=== PATIENT | male | born 1965 | race Caucasian/White ===

== ENCOUNTER 2018-09-24 09:01 | Day surgery (SDC) | payer OTHER ==
[2018-09-23 13:49] VITALS: BMI 29.5
[2018-09-24 10:48] VITALS: TEMP 97.9
[2018-09-24 12:06] VITALS: BP 147/92; PULSE 75
--- NOTE | 2018-09-25 11:28 | PATH ---
Surgical Pathology Report Patient Name: SOL PICHARDO [facility]. Rec. #: [id number] /Age/Gender: 1965 (Age: 53) / M Account: [id number] Location: U-ENDOSCOPY Taken: 09/24/2018 Received: 09/24/2018 Reported: 09/25/2018 Physicians: Guillermo Maradiaga M.D. Specimen(s) Received A: BX ILEUM B: BX CECUM C: BX RECTUM Clinical History Colon screening, rule out IBS, rectal bleeding Postoperative diagnosis: Diverticulosis Final Diagnosis A. ILEAL, BIOPSY: ILEAL MUCOSA WITH NO DIAGNOSTIC ABNORMALITIES. NO HISTOLOGIC EVIDENCE OF INTRAEPITHELIAL LYMPHOCYTOSIS. B. CECUM, BIOPSY: COLONIC MUCOSA WITH REACTIVE LYMPHOID AGGREGATE IN THE LAMINA PROPRIA. C. RECTUM, BIOPSY: COLONIC MUCOSA WITH REACTIVE LYMPHOID FOLLICLE AND FOCAL RECENT HEMORRHAGE. NO HISTOLOGIC EVIDENCE OF PROCTITIS. Electronically Signed Isis Jones M.D. Gross Description A. Received in formalin, labeled "ileum" are 2 hatch, irregular portions of soft tissue measuring 0.4 and 0.5 cm. in greatest dimension. The specimens are submitted in toto in one cassette. B. Received in formalin, labeled "rectum" is a hatch, irregular portion of soft tissue measuring 0.3 cm. in greatest dimension. The specimen is submitted in toto in one cassette. C. Received in formalin, labeled "cecum" are 2 hatch, irregular portions of soft tissue averaging 0.3 cm. in greatest dimension. The specimens are submitted in toto in one cassette. 09/24/2018 saudi09/24/2018
== END 2018-09-24 12:06 | disposition home or self-care (01) ==
LOC: JASU-ENDO 09:01
PROVIDERS: ATTEND Internal Medicine Gastroenterology
PROC: 0DBE8ZX Excision of Large Intestine, Via Natural or Artificial Opening Endoscopic, Diagnostic (ICD-10-PCS; principal; 2018-09-24 09:45)
DX: Z12.11 Encounter for screening for malignant neoplasm of colon (principal); K57.30 Diverticulosis of large intestine without perforation or abscess without bleeding; K64.8 Other hemorrhoids; K92.1 Melena
CPT/HCPCS: 87045; 87046; 88305-TC

== ENCOUNTER 2018-11-21 09:15 | Inpatient (IN) | payer OTHER ==
--- NOTE | 2018-11-21 09:32 | PDOC ---
History of Present Illness - General Chief Complaint: Rectal Bleed Stated Complaint: RECTAL BLEEDING Time Seen by Provider: 11/21/18 09:31 History Source: Patient, Old Records Exam Limitations: No Limitations - History of Present Illness Initial Comments: HPI: 53 y/o male presenting to [facility] ER complaining of bright red blood per rectum with bowel movement. Endorses four episodes since yesterday afternoon. Denies pain or straining with BM. Denies diarrhea or melena. Denies, syncope, lightheadedness, SOB, or chest pain. Denies fevers, chills, weight loss, night sweats, or change in stool caliber. Was evaluated at [facility] last night after first episode and referred to GI for outpatient follow up. H/H 17.8/ at [facility] per provided discharge paperwork. Pt is a pt of record with Dr. Maradiaga. Has an episode of blood mixed into stool in August 2018. Colonoscopy was performed 09/04/2018 and revealed diverticulosis. Pt does not take anticoagulants, but reports taking two ASA yesterday for headache. Medical Hx: - Diverticulosis - HTN - IBS Past History - Past Medical History Allergies/Adverse Reactions: Allergies Allergy/AdvReac Type Severity Reaction Status Date / Time No Known Allergies Allergy Verified 09/23/18 14:41 Home Medications: Ambulatory Orders NK [No Known Home Medication] 09/23/18 COPD: No GI Disorders: Yes (IBS) HTN: Yes - Surgical History Orthopedic Surgery: Yes (RIGHT ROTATOR CUFF) - Suicide/Smoking/Psychosocial Hx Smoking History: Never smoked Hx Alcohol Use: No Drug/Substance Use Hx: No Substance Use Type: None Hx Substance Use Treatment: No Review of Systems - Review of Systems Able to Perform ROS?: Yes Comments:: In addition to that documented in the HPI above, the additional ROS was obtained : Constitutional: Denies fevers or chills Eyes: Denies vision changes ENMT: Denies sore throat CV: Denies chest pain Resp: Denies SOB GI: Denies vomiting or diarrhea : Denies painful urination MSK: Denies recent trauma Skin: Denies new rashes Neuro: Denies new numbness or tingling or weakness Endocrine: Denies polyuria Heme: Denies bleeding or bruising *Physical Exam - Physical Exam Comments: Constitutional: Well-developed, well-nourished male in no acute distress or obvious discomfort. Found semi-fowlers on hospital bed. Alert and oriented x4. Answered all questions appropriately and completely. Speech was non-labored, non -pressured. Head: Normocephalic. No obvious external signs of trauma. Eyes: Sclerae white. EARS: Hearing grossly intact. NOSE: No nasal discharge. Neck: Supple, trachea is midline. Cardiovascular: Tachycardic rate and regular rhythm. No murmur, rubs, clicks, or gallops. Peripheral pulses: Radial pulses full. Respiratory: Breathing unlabored. Equal chest rise and fall. Clear to auscultation bilaterally. No stridor, no wheezing, no rhonchi. Gastrointestinal: abdomen is soft, non-tender, non-distended. Neuro: Alert and oriented. Moving all four extremities spontaneously. Skin: Warm, dry, and intact. Psych: Affect: appropriate. Mood: normal. MALE RECTAL: Good sphincter tone with no anal, perineal or rectal lesions. Bright red blood on glove. RN chaperoned exam. ED Treatment Course - LABORATORY CBC & Chemistry Diagram: 11/21/18 09:55 11/21/18 09:55 Medical Decision Making - Medical Decision Making *Reviewed vital signs, nursing notes, and prior visit documentation (if available). 53 y/o male presenting with BRBPR with bowel movements x2 days. H/o of diverticulosis. Tachycardic and hypertensive at triage. Reports a long history of similar vitals with anxiety. Denies syncope, chest pain, or SOB. Physical exam as described above. Suspect LGIB likely secondary to internal hemorrhoids versus AVM versus diverticular. Will obtain CBC, CMP, Coags, and T/S. Ordered LR IVFB. CBC revealed H/H within normal limits. Very slight downtrend from values reported from [facility]. Coags within normal limits. 10:[address] Maradiaga. Awaiting call back. Pt approached MD work area and reported another grossly bloody bowel movement. 11:[address] Maradiaga. Verbally appraised of the pts HPI, ED course, and current plan of management. Requests CTA of abdomen and pelvis. Will evaluate. ED attending admitted pt to hospitalist service for GI bleed concern for possible diverticular bleed. 12:05 RN called MD to bedside. Witness a possible syncopal episode. States pt became pale, diaphoretic, and appeared to lose tone. Lasted a few seconds before pt returned to baseline. Re-examined pt. Found to be diaphoretic but A/Ox4. Stated he felt nauseous before the episode. Vitals repeated. Remains hypertensive but trended downward from initial. Tachycardia has resolved. Suspect likely vasovagal episode, given pts reported history of similar. Ordered repeat T/S and repeat H/H. Will transport to CT on monitor. *DC/Admit/Observation/Transfer Diagnosis at time of Disposition: BRBPR (bright red blood per rectum) GI bleed Qualifiers: GI bleed type/associated pathology: unspecified gastrointestinal hemorrhage type Qualified Code(s): K92.2 - Gastrointestinal hemorrhage, unspecified Diverticulosis Qualifiers: Diverticulosis site: unspecified location - Referrals - Patient Instructions - Post Discharge Activity
--- NOTE | 2018-11-21 10:00 | PDOC ---
Attending Attestation - Resident Resident Name: Omega Murphy - ED Attending Attestation I have performed the following: I have examined & evaluated the patient, The case was reviewed & discussed with the resident, I agree w/resident's findings & plan, Exceptions are as noted - HPI HPI: 11/21/18 09:58 53yo M hx diverticulosis, IBS, HTN (not on meds) presents to the ED with painless BRBPR x 4 episodes since yesterday. Seen at [facility], dx iwth internal hemorrhoids Filling blood with toilet, some clots Feels mouth is dry as well. Follows with Dr. Maradiaga Colonoscopy in 08/28 for BRBPR was normal reportedly No lightheadedness, dizziness, weight loss, abd pain No blood thinners Denies CP, SOB, weakness/numbness. - Physicial Exam PE: 11/21/18 09:59 agree with resident exam - Medical Decision Making 11/21/18 10:20 53yo M hx diverticulosis presents to the ED with 4 episodes of painless rectal bleeding. Vitals with tachycardia and hypertension. Exam with dry MM, no abd ttp , rectal vault with BRB. Likely diverticulosis. Plan for labs, 1L IVF, GI c/s, admission. 11/21/18 11:59 Case discussed with VETERINARY SURGEON Denise. Pt accepted for admission. Dr. Arias aware, will see pt, recommends CTA Case discussed in detail with admitting physician including history, physical exam and ancillary studies. Admitting physician has assumed care for the patient, will follow all pending diagnostics and will complete the evaluation and treatment. *DC/Admit/Observation/Transfer Diagnosis at time of Disposition: BRBPR (bright red blood per rectum) GI bleed Qualifiers: GI bleed type/associated pathology: unspecified gastrointestinal hemorrhage type Qualified Code(s): K92.2 - Gastrointestinal hemorrhage, unspecified Diverticulosis Qualifiers: Diverticulosis site: unspecified location - Discharge Dispostion Condition at time of disposition: Stable Decision to Admit order: Yes - Referrals - Patient Instructions - Post Discharge Activity - Attestations Physician Attestion: 11/21/18 12:01 I, Dr. Aniyah Sheridan MD, attest that this document has been prepared under my direction and personally reviewed by me in its entirety. I further attest, that it accurately reflects all work, treatment, procedures and medical decision -making performed by me. Heart Score/ECG Review #1 11/21/18 12:22 Twelve-lead EKG was performed and reviewed by me. Sinus tachycardia, rate 103. Normal axis. No ST elevations. Isolated T-wave inversion in lead 3.
[2018-11-21 10:02] LABS: EOS % 1.3 % (0-4.5); HEMATOCRIT 50.3 % (35.4-49); HEMOGLOBIN 16.9 GM/dL (11.7-16.9); LYMPH % 19.2 % (8-40); MCH 28.2 pg (25.7-33.7); MCHC 33.6 g/dl (32.0-35.9); MEAN CELL VOLUME 83.9 fl (80-96); MEAN PLT VOLUME 7.3 fl (7.5-11.1); MONO % 7.4 % (3.8-10.2); NEUT % 71.1 % (42.8-82.8); PLATELET COUNT 323 K/MM3 (134-434); RBC 5.99 M/mm3 (4.00-5.60); RDW 14.3 % (11.9-15.9); WHITE BLOOD COUNT 12.3 K/mm3 (4.0-10.0)
[2018-11-21] MEDS ORDERED: LACTATED RINGERS SOLUTION 1000 ML INFUS.BAG IV ONE (10:09)
[2018-11-21 10:13] LABS: INR 1.08 (0.83-1.09); PROTHROMBIN TIME (PATIENT) 12.8 SEC (9.7-13.0)
[2018-11-21 10:16] LABS: ACTIVATED PTT 33.1 SECONDS (25.2-36.5)
[2018-11-21] MEDS ORDERED: SODIUM CHLORIDE 1,000 ML IV STA (10:17)
[2018-11-21 10:40] LABS: ALBUMIN 4.5 g/dl (3.4-5.0); ALK PHOS 67 U/L (45-117); ANION GAP 7 MMOL/L (8-16); BILIRUBIN,TOTAL 0.9 mg/dL (0.2-1); BLOOD UREA NITROGEN 15 mg/dL (7-18); CALCIUM 9.3 mg/dL (8.5-10.1); CHLORIDE 104 mmol/L (98-107); CO2 30 mmol/L (21-32); CREATININE 0.9 mg/dL (0.55-1.3); GLUCOSE,RANDOM 115 mg/dL (74-106); POTASSIUM 3.6 mmol/L (3.5-5.1); SGOT/AST 25 U/L (15-37); SGPT/ALT 45 U/L (13-61); SODIUM 141 mmol/L (136-145)
--- NOTE | 2018-11-21 11:40 | EKG ---
Test Reason : Blood Pressure : / mmHG Vent. Rate : 103 BPM Atrial Rate : 103 BPM P-R Int : 154 ms QRS Dur : 090 ms QT Int : 362 ms P-R-T Axes : 041 057 016 degrees QTc Int : 474 ms SINUS TACHYCARDIA OTHERWISE NORMAL ECG NO PREVIOUS ECGS AVAILABLE Confirmed by ANDRZEJ CARLOS, IVONNE ([id number]) on 11/21/2018 11:40:17 AM Referred By: Confirmed By:IVONNE DONNELLY MD
[2018-11-21 12:28] LABS: HEMATOCRIT 43.1 % (35.4-49); HEMOGLOBIN 15.5 GM/dL (11.7-16.9); MCH 29.7 pg (25.7-33.7); MCHC 35.8 g/dl (32.0-35.9); MEAN PLT VOLUME 7.7 fl (7.5-11.1); PLATELET COUNT 344 K/MM3 (134-434); RDW 14.2 % (11.9-15.9); WHITE BLOOD COUNT 16.3 K/mm3 (4.0-10.0)
--- NOTE | 2018-11-21 13:49 | HP ---
CHIEF COMPLAINT: bright blood per rectum PCP: none HISTORY OF PRESENT ILLNESS: Patient is a 53 year old male with a past medical history of anxiety, hypertension, diverticulosis and IBS. He presents to the ED today with c/o of bright red blood per rectum with a bowel movement. Patient endorses four episodes of rectal bleeding since yesterday. He denies any straining. He takes ASA 81mg as needed for headache pain and has taken a few times this past week. When patient had his first episode of rectal bleeding, he went to [facility] and was observed. He was sent home with outpatient follow up. In the ED patient had an episode of lightheadedness with a syncopal episode. He complaint of not feeling well and was nauseated and was noted to be pale and diaphoretic. When he sat up to use the basin, he had a witnessed syncopal episode. Patient returned to baseline a few seconds letter. He will be observed in cardiac monitoring for now. He was not hypoglycemic. Patient had a colonoscopy on 09/04/2018 which revealed diverticulosis. ER course was notable for: (1) syncopal episode (2) stable hmg/hct (3) abd cta: no definite bleeding identified, colonic diverticulosis seen, colonic fecal retention, 2mm non obstructing right renal calculus. Recent Travel: PAST MEDICAL HISTORY: nxiety, hypertension, diverticulosis and IBS. PAST SURGICAL HISTORY: colonoscopy 08/2018 Social History: Smoking:denies Alcohol:denies Drugs: denies Family History: Allergies No Known Allergies Allergy (Verified 09/23/18 14:41) HOME MEDICATIONS: Home Medications Medication Instructions Recorded NK [No Known Home Medication] 09/23/18 PHYSICAL EXAMINATION Vital Signs - 24 hr 11/21/18 11/21/18 11/21/18 09:31 10:00 11:50 Temperature 98.4 F 97.8 F Pulse Rate 125 H Pulse Rate [ 112 H 102 H Apical] Respiratory 20 18 18 Rate Blood Pressure 171/112 H Blood Pressure 172/111 H 159/109 H [Right Arm] O2 Sat by Pulse 97 100 96 Oximetry (%) 11/21/18 11/21/18 12:11 12:54 Temperature Pulse Rate Pulse Rate [ 89 95 H Apical] Respiratory 18 17 Rate Blood Pressure Blood Pressure 159/98 150/94 [Right Arm] O2 Sat by Pulse 100 96 Oximetry (%) GENERAL: Awake, alert, and fully oriented, in no acute distress. HEAD: Normal with no signs of trauma. EYES: Pupils equal, round and reactive to light, extraocular movements intact, sclera anicteric, conjunctiva clear. No lid lag. EARS, NOSE, THROAT: Ears normal, nares patent, oropharynx clear without exudates. Moist mucous membranes. NECK: Normal range of motion, supple without lymphadenopathy, JVD, or masses. LUNGS: Breath sounds equal, clear to auscultation bilaterally. No wheezes, and no crackles. No accessory muscle use. HEART: Regular rate and rhythm, normal S1 and S2 without murmur, rub or gallop. ABDOMEN: Soft, nontender, not distended, normoactive bowel sounds, no guarding, no rebound, no masses. No hepatomegaly or splenomegaly. MUSCULOSKELETAL: Normal range of motion at all joints. No bony deformities or tenderness. No CVA tenderness. UPPER EXTREMITIES: 2+ pulses, warm, well-perfused. No cyanosis. No clubbing. No peripheral edema. LOWER EXTREMITIES: 2+ pulses, warm, well-perfused. No calf tenderness. No peripheral edema. NEUROLOGICAL: Cranial nerves II-XII intact. Normal speech. Normal gait. PSYCHIATRIC: Cooperative. Good eye contact. Appropriate mood and affect. SKIN: Warm, dry, normal turgor, no rashes or lesions noted, normal capillary refill. Laboratory Results - last 24 hr 11/21/18 11/21/18 11/21/18 09:55 09:55 09:55 WBC 12.3 H RBC 5.99 H Hgb 16.9 Hct 50.3 H MCV 83.9 MCH 28.2 MCHC 33.6 RDW 14.3 Plt Count 323 MPV 7.3 L Absolute Neuts (auto) 8.8 H Neutrophils % 71.1 Lymphocytes % 19.2 Monocytes % 7.4 Eosinophils % 1.3 Basophils % 1.0 Nucleated RBC % 0 PT with INR 12.80 INR 1.08 PTT (Actin FS) 33.1 Sodium 141 Potassium 3.6 Chloride 104 Carbon Dioxide 30 Anion Gap 7 L BUN 15 Creatinine 0.9 Creat Clearance w eGFR > 60 POC Glucometer Random Glucose 115 H Calcium 9.3 Total Bilirubin 0.9 AST 25 ALT 45 Alkaline Phosphatase 67 Total Protein 8.0 Albumin 4.5 Blood Type Antibody Screen 11/21/18 11/21/18 11/21/18 09:55 11:58 11:58 WBC 16.3 H RBC 5.20 Hgb 15.5 Hct 43.1 MCV 83.0 MCH 29.7 MCHC 35.8 RDW 14.2 Plt Count 344 MPV 7.7 Absolute Neuts (auto) Neutrophils % Lymphocytes % Monocytes % Eosinophils % Basophils % Nucleated RBC % PT with INR INR PTT (Actin FS) Sodium Potassium Chloride Carbon Dioxide Anion Gap BUN Creatinine Creat Clearance w eGFR POC Glucometer Random Glucose Calcium Total Bilirubin AST ALT Alkaline Phosphatase Total Protein Albumin Blood Type O POSITIVE O POSITIVE Antibody Screen Negative 11/21/18 12:02 WBC RBC Hgb Hct MCV MCH MCHC RDW Plt Count MPV Absolute Neuts (auto) Neutrophils % Lymphocytes % Monocytes % Eosinophils % Basophils % Nucleated RBC % PT with INR INR PTT (Actin FS) Sodium Potassium Chloride Carbon Dioxide Anion Gap BUN Creatinine Creat Clearance w eGFR POC Glucometer [id number] Random Glucose Calcium Total Bilirubin AST ALT Alkaline Phosphatase Total Protein Albumin Blood Type Antibody Screen ASSESSMENT/PLAN: Patient is a 53 year old male with a past medical history of anxiety, hypertension, diverticulosis and IBS. He presents to the ED today with c/o of bright red blood per rectum with a bowel movement. Patient endorses four episodes of rectal bleeding since yesterday. He denies any straining. He takes ASA 81mg as needed for headache pain. When patient had his first episode of rectal bleeding, he went to [facility] and was observed. He was sent home with outpatient follow up. In the ED patient had an episode of lightheadedness with a syncopal episode. He complaint of not feeling well and was nauseated and was noted to be pale and diaphoretic. When he sat up to use the basin, he had a witnessed syncopal episode. Patient returned to baseline a few seconds letter. He will be observed in cardiac monitoring for now. He was not hypoglycemic. Imaging: abd cta: no definite bleeding identified, colonic diverticulosis seen, colonic fecal retention, 2mm non obstructing right renal calculus. GI: Rectal bleed Hx of diverticulosis, IBS Monitor in tele trend hmg/hct Will type and screen Protonix 40mg daily Hydrate with lactate ringers On a clear liquid diet per GI Card: Hypertension, chronic On no home medications. monitor Neuro: Syncope Likely secondary to fluid volume loss Hydrate with LR Monitor intake and output Anxiety, chronic ativan prn fen LR @ 100cc/hr monitor electrolytes clear liquid diet prophy deferred a/c due to bleeding LOS <48 hours full code Visit type - Emergency Visit Emergency Visit: Yes ED Registration Date: 11/21/18 Care time: The patient presented to the Emergency Department on the above date and was hospitalized for further evaluation of their emergent condition. - New Patient This patient is new to me today: Yes Date on this admission: 11/21/18 - Critical Care Critical Care patient: No
[2018-11-21] MEDS: LACTATED RINGERS SOLUTION 1,000 ML/1,000 ML INFUS.BAG IV SCH (14:32)
[2018-11-21] MEDS ORDERED: LORazepam 2 MG/ML SDV VIAL IVPUSH PRN (15:36)
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
[2018-11-21] MEDS ORDERED: ONDANSETRON 4 MG/2 ML VIAL IVPUSH ONE (22:29)
[2018-11-21] MEDS ORDERED: ACETAMINOPHEN 325 MG TABLET (FP) PO ONE (22:30)
[2018-11-21 23:37] VITALS: BMI 29.9
[2018-11-22 08:03] LABS: BASO % 0.4 % (0-2.0); EOS % 1.4 % (0-4.5); HEMATOCRIT 41.3 % (35.4-49); HEMOGLOBIN 13.7 GM/dL (11.7-16.9); LYMPH % 25.4 % (8-40); MCH 28.2 pg (25.7-33.7); MCHC 33.2 g/dl (32.0-35.9); MEAN CELL VOLUME 84.9 fl (80-96); MEAN PLT VOLUME 7.7 fl (7.5-11.1); MONO % 9.2 % (3.8-10.2); NEUT % 63.6 % (42.8-82.8); PLATELET COUNT 318 K/MM3 (134-434); RBC 4.86 M/mm3 (4.00-5.60); RDW 14.1 % (11.9-15.9); WHITE BLOOD COUNT 10.2 K/mm3 (4.0-10.0)
[2018-11-22] MEDS ORDERED: ACETAMINOPHEN 325 MG TABLET (FP) PO PRN (08:39)
[2018-11-22 09:26] LABS: ANION GAP 6 MMOL/L (8-16); BLOOD UREA NITROGEN 13 mg/dL (7-18); CALCIUM 9.1 mg/dL (8.5-10.1); CHLORIDE 105 mmol/L (98-107); CO2 30 mmol/L (21-32); CREATININE 0.8 mg/dL (0.55-1.3); GLUCOSE,RANDOM 91 mg/dL (74-106); MAGNESIUM 2.2 mg/dL (1.8-2.4); POTASSIUM 3.7 mmol/L (3.5-5.1); SODIUM 141 mmol/L (136-145)
[2018-11-22] MEDS: PANTOPRAZOLE 40 MG TABLET (FP) PO SCH (09:49)
--- NOTE | 2018-11-22 09:52 | PN ---
GI Progress Note Subjective: No acute events Bleeding subsided from yesterday evening No abdominal pain CTA unrevealing for bleeding source - Objective Vital Signs: Vital Signs Temperature 98.0 F 11/22/18 05:31 Pulse Rate 87 11/22/18 05:31 Respiratory Rate 20 11/22/18 05:31 Blood Pressure 145/89 11/22/18 05:31 O2 Sat by Pulse Oximetry (%) 97 11/22/18 04:00 Constitutional: Calm Eyes: No: Sclera Icterus Cardiovascular: Yes: Regular Rate and Rhythm Respiratory: Yes: CTA Bilaterally Gastrointestinal Inspection: No: Distention ...Auscultate: Yes: Normoactive Bowel Sounds ...Palpate: No: Hepatomegaly, Splenomegaly, Tenderness Edema: No (No LE edema) Neurological: Yes: Alert Labs: CBC, BMP 11/22/18 06:30 11/22/18 06:30 INR, PTT INR 1.08 (0.83-1.09) 11/21/18 09:55 Problem List - Problems (1) BRBPR (bright red blood per rectum) Assessment/Plan: Hemorrhoidal bleeding vs. diverticular: Hemodyaminc stability / stable H/H leaning episodes towards hemorrhoidal in etiology Rec: Clear liquids Continue to monitor hemodynamics If overt bleeding persists, repeat endoscopuic evaluation would need to be considered Code(s): K62.5 - HEMORRHAGE OF ANUS AND RECTUM
[2018-11-22 11:44] LABS: BASO % 0.5 % (0-2.0); HEMATOCRIT 38.6 % (35.4-49); HEMOGLOBIN 13.5 GM/dL (11.7-16.9); LYMPH % 27.6 % (8-40); MCH 29.4 pg (25.7-33.7); MEAN CELL VOLUME 83.9 fl (80-96); MEAN PLT VOLUME 7.7 fl (7.5-11.1); MONO % 10.2 % (3.8-10.2); NEUT % 59.7 % (42.8-82.8); PLATELET COUNT 305 K/MM3 (134-434); WHITE BLOOD COUNT 9.5 K/mm3 (4.0-10.0)
[2018-11-22] MEDS: LACTATED RINGERS SOLUTION 1,000 ML/1,000 ML INFUS.BAG IV SCH (17:44)
--- NOTE | 2018-11-22 19:24 | PN ---
Physical Exam: SUBJECTIVE: Patient seen and examined OBJECTIVE: Vital Signs Period Temp Pulse Resp BP Sys/Monroe Pulse Ox Last 24 Hr 98.0 F-98.3 F 77-89 16-20 138-145/76-94 95-100 GENERAL: Awake, alert, and fully oriented, in no acute distress. HEAD: Normal with no signs of trauma. EYES: Pupils equal, round and reactive to light, extraocular movements intact, sclera anicteric, conjunctiva clear. No lid lag. EARS, NOSE, THROAT: Ears normal, nares patent, oropharynx clear without exudates. Moist mucous membranes. NECK: Normal range of motion, supple without lymphadenopathy, JVD, or masses. LUNGS: Breath sounds equal, clear to auscultation bilaterally. No wheezes, and no crackles. No accessory muscle use. HEART: Regular rate and rhythm, normal S1 and S2 without murmur, rub or gallop. ABDOMEN: Soft, nontender, not distended, normoactive bowel sounds, no guarding, no rebound, no masses. No hepatomegaly or splenomegaly. MUSCULOSKELETAL: Normal range of motion at all joints. No bony deformities or tenderness. No CVA tenderness. UPPER EXTREMITIES: 2+ pulses, warm, well-perfused. No cyanosis. No clubbing. No peripheral edema. LOWER EXTREMITIES: 2+ pulses, warm, well-perfused. No calf tenderness. No peripheral edema. NEUROLOGICAL: Cranial nerves II-XII intact. Normal speech. Normal gait. PSYCHIATRIC: Cooperative. Good eye contact. Appropriate mood and affect. SKIN: Warm, dry, normal turgor, no rashes or lesions noted, normal capillary refill. Laboratory Results - last 24 hr 11/22/18 11/22/18 11/22/18 03:00 06:30 06:30 WBC 10.2 H RBC 4.86 Hgb 13.7 Hct 41.3 MCV 84.9 MCH 28.2 MCHC 33.2 RDW 14.1 Plt Count 318 MPV 7.7 Absolute Neuts (auto) 6.5 Neutrophils % 63.6 Lymphocytes % 25.4 D Monocytes % 9.2 Eosinophils % 1.4 Basophils % 0.4 Nucleated RBC % 0 Sodium 141 Potassium 3.7 Chloride 105 Carbon Dioxide 30 Anion Gap 6 L BUN 13 Creatinine 0.8 Creat Clearance w eGFR > 60 Random Glucose 91 Calcium 9.1 Magnesium 2.2 Stool Occult Blood Negative 11/22/18 10:55 WBC 9.5 RBC 4.60 Hgb 13.5 Hct 38.6 MCV 83.9 MCH 29.4 MCHC 35.0 RDW 14.0 Plt Count 305 MPV 7.7 Absolute Neuts (auto) 5.7 Neutrophils % 59.7 Lymphocytes % 27.6 Monocytes % 10.2 Eosinophils % 2.0 Basophils % 0.5 Nucleated RBC % 0 Sodium Potassium Chloride Carbon Dioxide Anion Gap BUN Creatinine Creat Clearance w eGFR Random Glucose Calcium Magnesium Stool Occult Blood Active Medications Generic Name Dose Route Start Last Admin Trade Name Erasmoq PRN Reason Stop Dose Admin Acetaminophen 650 mg 11/22/18 08:39 Tylenol - PO Q6H PRN HEADACHE Lorazepam 0.5 mg 11/21/18 15:36 Ativan Injection - IVPUSH Q6H PRN ANXIETY Pantoprazole Sodium 40 mg 11/22/18 10:00 11/22/18 09:49 Protonix - PO 40 mg DAILY ИВАН Administration Polyethylene Glycol 17 gm 11/23/18 10:00 Miralax (For Daily Use) - PO DAILY ИВАН ASSESSMENT/PLAN: Patient is a 53 year old male with a past medical history of anxiety, hypertension, diverticulosis and IBS. He presents to the ED today with c/o of bright red blood per rectum with a bowel movement. Patient endorses four episodes of rectal bleeding since yesterday. He denies any straining. He takes ASA 81mg as needed for headache pain. When patient had his first episode of rectal bleeding, he went to [facility] and was observed. He was sent home with outpatient follow up. In the ED patient had an episode of lightheadedness with a syncopal episode. Imaging: abd cta: no definite bleeding identified, colonic diverticulosis seen, colonic fecal retention, 2mm non obstructing right renal calculus. GI: Rectal bleed, monitor hmg/hct stable. had one brown bm last night with some streaks of blood. Continue to trend hmg/hct Protonix PO daily On clears per GI Card: Hypertension, chronic On no home medications. monitor Neuro: Syncope, resolved Anxiety, chronic ativan prn fen tolerating clears monitor electrolytes clear liquid diet prophy deferred a/c due to bleeding LOS <48 hours full code Visit type - Emergency Visit Emergency Visit: Yes ED Registration Date: 11/21/18 Care time: The patient presented to the Emergency Department on the above date and was hospitalized for further evaluation of their emergent condition. - New Patient This patient is new to me today: No - Critical Care Critical Care patient: No - Discharge Referral Referred to [facility] No
[2018-11-22] MEDS ORDERED: LORazepam 0.5 MG TABLET PO PRN (19:25)
[2018-11-23 07:58] LABS: BASO % 0.8 % (0-2.0); EOS % 2.5 % (0-4.5); HEMATOCRIT 41.2 % (35.4-49); HEMOGLOBIN 13.7 GM/dL (11.7-16.9); LYMPH % 26.7 % (8-40); MCH 28.3 pg (25.7-33.7); MCHC 33.3 g/dl (32.0-35.9); MEAN CELL VOLUME 85.1 fl (80-96); MEAN PLT VOLUME 7.7 fl (7.5-11.1); MONO % 8.1 % (3.8-10.2); NEUT % 61.9 % (42.8-82.8); PLATELET COUNT 302 K/MM3 (134-434); RBC 4.84 M/mm3 (4.00-5.60); WHITE BLOOD COUNT 9.2 K/mm3 (4.0-10.0)
[2018-11-23 08:25] LABS: ALBUMIN 3.9 g/dl (3.4-5.0); ALK PHOS 51 U/L (45-117); ANION GAP 7 MMOL/L (8-16); BILIRUBIN,TOTAL 0.8 mg/dL (0.2-1); BLOOD UREA NITROGEN 13 mg/dL (7-18); CHLORIDE 106 mmol/L (98-107); CO2 29 mmol/L (21-32); CREATININE 0.9 mg/dL (0.55-1.3); GLUCOSE,RANDOM 87 mg/dL (74-106); POTASSIUM 3.6 mmol/L (3.5-5.1); SGOT/AST 32 U/L (15-37); SGPT/ALT 38 U/L (13-61); SODIUM 142 mmol/L (136-145)
[2018-11-23] MEDS: PANTOPRAZOLE 40 MG TABLET (FP) PO SCH (09:00)
[2018-11-23] MEDS: POLYETHYLENE GLYCOL 3350 119 GM BTL PO SCH (09:00)
--- NOTE | 2018-11-23 09:20 | PN ---
Physical Exam: SUBJECTIVE: Patient seen and examined at the bedside. feels better, in no acute distress OBJECTIVE: Vital Signs Period Temp Pulse Resp BP Sys/Monroe Pulse Ox Last 24 Hr 98 F-98.5 F 73-82 16-20 114-141/74-92 97-97 GENERAL: Awake, alert, and fully oriented, in no acute distress. HEAD: Normal with no signs of trauma. EYES: Pupils equal, round and reactive to light, extraocular movements intact, sclera anicteric, conjunctiva clear. No lid lag. EARS, NOSE, THROAT: Ears normal, nares patent, oropharynx clear without exudates. Moist mucous membranes. NECK: Normal range of motion, supple without lymphadenopathy, JVD, or masses. LUNGS: Breath sounds equal, clear to auscultation bilaterally. No wheezes, and no crackles. No accessory muscle use. HEART: Regular rate and rhythm, normal S1 and S2 without murmur, rub or gallop. ABDOMEN: Soft, nontender, not distended, normoactive bowel sounds, no guarding, no rebound, no masses. No hepatomegaly or splenomegaly. MUSCULOSKELETAL: Normal range of motion at all joints. No bony deformities or tenderness. No CVA tenderness. UPPER EXTREMITIES: 2+ pulses, warm, well-perfused. No cyanosis. No clubbing. No peripheral edema. LOWER EXTREMITIES: 2+ pulses, warm, well-perfused. No calf tenderness. No peripheral edema. NEUROLOGICAL: Cranial nerves II-XII intact. Normal speech. Normal gait. PSYCHIATRIC: Cooperative. Good eye contact. Appropriate mood and affect. SKIN: Warm, dry, normal turgor, no rashes or lesions noted, normal capillary refill. Laboratory Results - last 24 hr 11/22/18 11/22/18 11/23/18 06:30 10:55 06:30 WBC 9.5 9.2 RBC 4.60 4.84 Hgb 13.5 13.7 Hct 38.6 41.2 MCV 83.9 85.1 MCH 29.4 28.3 MCHC 35.0 33.3 RDW 14.0 14.0 Plt Count 305 302 MPV 7.7 7.7 Absolute Neuts (auto) 5.7 5.7 Neutrophils % 59.7 61.9 Lymphocytes % 27.6 26.7 Monocytes % 10.2 8.1 Eosinophils % 2.0 2.5 Basophils % 0.5 0.8 Nucleated RBC % 0 0 Sodium 141 Potassium 3.7 Chloride 105 Carbon Dioxide 30 Anion Gap 6 L BUN 13 Creatinine 0.8 Creat Clearance w eGFR > 60 Random Glucose 91 Calcium 9.1 Magnesium 2.2 Total Bilirubin AST ALT Alkaline Phosphatase Total Protein Albumin 11/23/18 06:30 WBC RBC Hgb Hct MCV MCH MCHC RDW Plt Count MPV Absolute Neuts (auto) Neutrophils % Lymphocytes % Monocytes % Eosinophils % Basophils % Nucleated RBC % Sodium 142 Potassium 3.6 Chloride 106 Carbon Dioxide 29 Anion Gap 7 L BUN 13 Creatinine 0.9 Creat Clearance w eGFR > 60 Random Glucose 87 Calcium 9.0 Magnesium Total Bilirubin 0.8 AST 32 ALT 38 Alkaline Phosphatase 51 Total Protein 7.0 Albumin 3.9 Active Medications Generic Name Dose Route Start Last Admin Trade Name Freq PRN Reason Stop Dose Admin Acetaminophen 650 mg 11/22/18 08:39 Tylenol - PO Q6H PRN HEADACHE Lorazepam 0.5 mg 11/22/18 19:25 Ativan - PO DAILY PRN ANXIETY Pantoprazole Sodium 40 mg 11/22/18 10:00 11/23/18 09:00 Protonix - PO 40 mg DAILY ИВАН Administration Polyethylene Glycol 17 gm 11/23/18 10:00 11/23/18 09:00 Miralax (For Daily Use) - PO 17 gm DAILY ИВАН Administration ASSESSMENT/PLAN: Patient is a 53 year old male with a past medical history of anxiety, hypertension, diverticulosis and IBS. He presents to the ED with c/o of bright red blood per rectum. No further bleeding since yesterdays BM. tolerating soft diet. Imaging: abd cta: no definite bleeding identified, colonic diverticulosis seen, colonic fecal retention, 2mm non obstructing right renal calculus. GI: Rectal bleed, resolved hmg/hct stable. no bm overnight Continue to trend hmg/hct, remains stable. further workup per gi Card: Hypertension, chronic On no home medications. monitor Neuro: Syncope, resolved Anxiety, chronic ativan prn fen tolerating clears monitor electrolytes soft diet prophy deferred a/c due to bleeding LOS <48 hours full code Visit type - Emergency Visit Emergency Visit: Yes ED Registration Date: 11/21/18 Care time: The patient presented to the Emergency Department on the above date and was hospitalized for further evaluation of their emergent condition. - New Patient This patient is new to me today: No - Critical Care Critical Care patient: No - Discharge Referral Referred to [facility] Med P.C.: No
--- NOTE | 2018-11-23 20:38 | HOSP ---
Physical Examination Vital Signs: Vital Signs Temperature 98.4 F 11/23/18 14:00 Pulse Rate 78 11/23/18 14:00 Respiratory Rate 18 11/23/18 14:00 Blood Pressure 149/90 11/23/18 14:00 O2 Sat by Pulse Oximetry (%) 97 11/23/18 09:00 Constitutional: Yes: Well Nourished, No Distress, Anxious Eyes: Yes: Conjunctiva Clear HENT: Yes: Atraumatic Neck: Yes: Supple Cardiovascular: Yes: Tachycardia Respiratory: Yes: Regular Gastrointestinal: Yes: Normal Bowel Sounds, Soft, Hemorrhoids ...Rectal Exam: Yes: Deferred Labs: CBC, BMP 11/23/18 06:30 11/23/18 06:30 Hospitalist Encounter Assessment: Called by RN that patient heart rate was up to 120-140s and was c/o hot flashes On exam patient was laying in the bed, in no acute distress. tells me he feels anxious. anxiety has been happening on and off for the past 30 years and states he has PTSD and suffers from panic attacks He denies any chest pain or shortness of breath Sitting up in bed, smiling and conversing with the RN and headline writer EKG shows sinus tachycardia 126 bp stable will order: repeat cbc, cmp, troponins monitor on tele
[2018-11-23 21:05] LABS: HEMATOCRIT 40.4 % (35.4-49); HEMOGLOBIN 14.3 GM/dL (11.7-16.9); MCHC 35.3 g/dl (32.0-35.9); MEAN CELL VOLUME 84.8 fl (80-96); MEAN PLT VOLUME 7.7 fl (7.5-11.1); PLATELET COUNT 317 K/MM3 (134-434); RBC 4.77 M/mm3 (4.00-5.60); RDW 14.1 % (11.9-15.9); WHITE BLOOD COUNT 8.9 K/mm3 (4.0-10.0)
[2018-11-23 21:35] LABS: ALBUMIN 3.9 g/dl (3.4-5.0); ALK PHOS 51 U/L (45-117); ANION GAP 7 MMOL/L (8-16); BILIRUBIN,TOTAL 0.4 mg/dL (0.2-1); BLOOD UREA NITROGEN 15 mg/dL (7-18); CALCIUM 8.7 mg/dL (8.5-10.1); CHLORIDE 107 mmol/L (98-107); CO2 28 mmol/L (21-32); CREATININE 0.9 mg/dL (0.55-1.3); GLUCOSE,RANDOM 84 mg/dL (74-106); MAGNESIUM 2.2 mg/dL (1.8-2.4); POTASSIUM 3.7 mmol/L (3.5-5.1); SGOT/AST 27 U/L (15-37); SGPT/ALT 44 U/L (13-61); SODIUM 141 mmol/L (136-145)
[2018-11-24 06:29] LABS: EOS % 3.1 % (0-4.5); HEMATOCRIT 44.9 % (35.4-49); HEMOGLOBIN 14.8 GM/dL (11.7-16.9); LYMPH % 26.1 % (8-40); MCH 27.9 pg (25.7-33.7); MCHC 32.9 g/dl (32.0-35.9); MEAN CELL VOLUME 84.8 fl (80-96); MEAN PLT VOLUME 7.5 fl (7.5-11.1); MONO % 8.6 % (3.8-10.2); NEUT % 61.2 % (42.8-82.8); PLATELET COUNT 320 K/MM3 (134-434); RDW 14.1 % (11.9-15.9); WHITE BLOOD COUNT 9.7 K/mm3 (4.0-10.0)
[2018-11-24 07:00] LABS: ALK PHOS 52 U/L (45-117); ANION GAP 7 MMOL/L (8-16); BILIRUBIN,TOTAL 0.7 mg/dL (0.2-1); BLOOD UREA NITROGEN 13 mg/dL (7-18); CALCIUM 9.1 mg/dL (8.5-10.1); CHLORIDE 104 mmol/L (98-107); CO2 28 mmol/L (21-32); CREATININE 0.8 mg/dL (0.55-1.3); GLUCOSE,RANDOM 89 mg/dL (74-106); MAGNESIUM 2.5 mg/dL (1.8-2.4); POTASSIUM 3.6 mmol/L (3.5-5.1); SGOT/AST 31 U/L (15-37); SGPT/ALT 48 U/L (13-61); SODIUM 139 mmol/L (136-145); TOT PROT 7.2 g/dl (6.4-8.2)
[2018-11-24] MEDS ORDERED: SODIUM CHLORIDE 1,000 ML IV STA (07:45)
--- NOTE | 2018-11-24 07:46 | PN ---
Physical Exam: SUBJECTIVE: Patient seen and examined at the bedside. ambulating around room telling me he feels anxiety. denies any bleeding overnight. denies chest pain, not short of breath. OBJECTIVE: sinus tachycardia persisting since yesterday evening trop negative x 2 will order echo, tsh, lipid and cardiology eval hmg/hct stable, will fluid bolus with 1 liter x 1 repeat ekg now Vital Signs Period Temp Pulse Resp BP Sys/Monroe Pulse Ox Last 24 Hr 97.7 F-98.8 F 77-131 16-20 131-151/90-115 97-97 GENERAL: The patient is awake, alert, and fully oriented, in no acute distress. HEAD: Normal with no signs of trauma. EYES: PERRL, extraocular movements intact, sclera anicteric, conjunctiva clear. No ptosis. ENT: Ears normal, nares patent, oropharynx clear without exudates, moist mucous membranes. NECK: Trachea midline, full range of motion, supple. LUNGS: Breath sounds equal, clear to auscultation bilaterally, no wheezes, no crackles, no accessory muscle use. HEART: sinus tachy 120 - 140s ABDOMEN: Soft, nontender, nondistended, normoactive bowel sounds, no guarding, no rebound, no hepatosplenomegaly, no masses. EXTREMITIES: no edema. NEUROLOGICAL: Normal speech, steady gait PSYCH: verbalizes anxiety SKIN: Warm, dry, normal turgor, no rashes or lesions noted Laboratory Results - last 24 hr 11/23/18 11/23/18 11/23/18 06:30 06:30 20:40 WBC 9.2 8.9 RBC 4.84 4.77 Hgb 13.7 14.3 Hct 41.2 40.4 MCV 85.1 84.8 MCH 28.3 30.0 MCHC 33.3 35.3 RDW 14.0 14.1 Plt Count 302 317 MPV 7.7 7.7 Absolute Neuts (auto) 5.7 Neutrophils % 61.9 Lymphocytes % 26.7 Monocytes % 8.1 Eosinophils % 2.5 Basophils % 0.8 Nucleated RBC % 0 Sodium 142 Potassium 3.6 Chloride 106 Carbon Dioxide 29 Anion Gap 7 L BUN 13 Creatinine 0.9 Creat Clearance w eGFR > 60 Random Glucose 87 Calcium 9.0 Magnesium Total Bilirubin 0.8 AST 32 ALT 38 Alkaline Phosphatase 51 Troponin I Total Protein 7.0 Albumin 3.9 11/23/18 11/24/18 11/24/18 20:40 02:50 05:00 WBC 9.7 RBC 5.30 Hgb 14.8 Hct 44.9 MCV 84.8 MCH 27.9 MCHC 32.9 RDW 14.1 Plt Count 320 MPV 7.5 Absolute Neuts (auto) 5.9 Neutrophils % 61.2 Lymphocytes % 26.1 Monocytes % 8.6 Eosinophils % 3.1 Basophils % 1.0 Nucleated RBC % 0 Sodium 141 Potassium 3.7 Chloride 107 Carbon Dioxide 28 Anion Gap 7 L BUN 15 Creatinine 0.9 Creat Clearance w eGFR > 60 Random Glucose 84 Calcium 8.7 Magnesium 2.2 Total Bilirubin 0.4 AST 27 ALT 44 Alkaline Phosphatase 51 Troponin I < 0.02 < 0.02 Total Protein 7.0 Albumin 3.9 11/24/18 05:00 WBC RBC Hgb Hct MCV MCH MCHC RDW Plt Count MPV Absolute Neuts (auto) Neutrophils % Lymphocytes % Monocytes % Eosinophils % Basophils % Nucleated RBC % Sodium 139 Potassium 3.6 Chloride 104 Carbon Dioxide 28 Anion Gap 7 L BUN 13 Creatinine 0.8 Creat Clearance w eGFR > 60 Random Glucose 89 Calcium 9.1 Magnesium 2.5 H Total Bilirubin 0.7 AST 31 ALT 48 Alkaline Phosphatase 52 Troponin I Total Protein 7.2 Albumin 4.0 Active Medications Generic Name Dose Route Start Last Admin Trade Name Freq PRN Reason Stop Dose Admin Acetaminophen 650 mg 11/22/18 08:39 Tylenol - PO Q6H PRN HEADACHE Sodium Chloride 1,000 mls @ 1,000 mls/hr 11/24/18 07:45 Normal Saline - IV 11/24/18 08:44 ASDIR STA Lorazepam 0.5 mg 11/22/18 19:25 Ativan - PO DAILY PRN ANXIETY Pantoprazole Sodium 40 mg 11/22/18 10:00 11/23/18 09:00 Protonix - PO 40 mg DAILY ИВАН Administration Polyethylene Glycol 17 gm 11/23/18 10:00 11/23/18 09:00 Miralax (For Daily Use) - PO 17 gm DAILY ИВАН Administration ASSESSMENT/PLAN: Patient is a 53 year old male with a past medical history of anxiety, hypertension, diverticulosis and IBS. He presents to the ED with c/o of bright red blood per rectum. No further bleeding. tolerating soft diet. now tachycardic on monitor. no chest pain. Imaging: abd cta: no definite bleeding identified, colonic diverticulosis seen, colonic fecal retention, 2mm non obstructing right renal calculus. GI: Rectal bleed, resolved hmg/hct stable. no bm overnight Continue to trend hmg/hct, remains stable. further workup per gi Card: Hypertension, chronic On no home medications. monitor Sinus tachycardia. ekg shows sinus tachycardia, normal ekg, will repeat sinus tachy persists 120-140s w/o chest pain or shortness of breath trops negative x 2, will trend one more. electrolytes within normal limits. echo ordered, tsh and lipid panel ordered cardiology consult. Neuro: Syncope, resolved Anxiety, chronic ativan prn fen tolerating clears monitor electrolytes soft diet prophy deferred a/c due to bleeding full code Visit type - Emergency Visit Emergency Visit: Yes ED Registration Date: 11/21/18 Care time: The patient presented to the Emergency Department on the above date and was hospitalized for further evaluation of their emergent condition. - New Patient This patient is new to me today: No - Critical Care Critical Care patient: No - Discharge Referral Referred to [facility] Med P.C.: No
[2018-11-24 09:22] LABS: CHOLESTEROL 248 mg/dL (50-200); HDL CHOLESTEROL 42 mg/dL (40-60); TRIGLYCERIDES 93 mg/dL (0-150)
[2018-11-24] MEDS ORDERED: ATORVASTATIN CA 40 MG TABLET (FP) PO ONE (09:45)
--- NOTE | 2018-11-24 09:47 | EKG ---
Test Reason : Blood Pressure : / mmHG Vent. Rate : 126 BPM Atrial Rate : 126 BPM P-R Int : 128 ms QRS Dur : 084 ms QT Int : 316 ms P-R-T Axes : 000 060 008 degrees QTc Int : 457 ms SINUS TACHYCARDIA OTHERWISE NORMAL ECG WHEN COMPARED WITH ECG OF 23-NOV-2018 18:37, NO SIGNIFICANT CHANGE WAS FOUND Confirmed by CYRIL BYRNE MD ([id number]) on 11/24/2018 9:47:00 AM Referred By: Confirmed By:CYRIL BYRNE MD
--- NOTE | 2018-11-24 09:51 | EKG ---
Test Reason : Blood Pressure : / mmHG Vent. Rate : 129 BPM Atrial Rate : 129 BPM P-R Int : 132 ms QRS Dur : 088 ms QT Int : 320 ms P-R-T Axes : 000 045 016 degrees QTc Int : 468 ms SINUS TACHYCARDIA OTHERWISE NORMAL ECG WHEN COMPARED WITH ECG OF 21-NOV-2018 10:05, NO SIGNIFICANT CHANGE WAS FOUND Confirmed by CYRIL BYRNE MD ([id number]) on 11/24/2018 9:51:03 AM Referred By: Confirmed By:CYRIL BYRNE MD
[2018-11-24] MEDS: POLYETHYLENE GLYCOL 3350 119 GM BTL PO SCH ×3 (09:57→21:36)
[2018-11-24] MEDS: PANTOPRAZOLE 40 MG TABLET (FP) PO SCH (09:57)
--- NOTE | 2018-11-24 12:35 | PN ---
GI Progress Note Subjective: GI NOte: No bleeding in fact no BM. Prone to tachycardia. - Objective Vital Signs: Vital Signs Temperature 98.1 F 11/24/18 10:04 Pulse Rate 131 H 11/24/18 10:05 Respiratory Rate 18 11/24/18 10:05 Blood Pressure 153/105 H 11/24/18 10:05 O2 Sat by Pulse Oximetry (%) 97 11/23/18 21:00 Laboratory Tests 11/21/18 11/23/18 11/24/18 11:58 20:40 05:00 Hgb 15.5 14.3 14.8 BUN Creatinine Total Bilirubin AST ALT Alkaline Phosphatase 11/24/18 05:00 Hgb BUN 13 Creatinine 0.8 Total Bilirubin 0.7 AST 31 ALT 48 Alkaline Phosphatase 52 Constitutional: Anxious ...Auscultate: Yes: Normoactive Bowel Sounds ...Palpate: Yes: Soft, Other (nontender) Labs: CBC, BMP 11/24/18 05:00 11/24/18 05:00 INR, PTT INR 1.08 (0.83-1.09) 11/21/18 09:55 Assessment/Plan Suspect resolved hemorrhoidal bleed Will start Miralax TID to prevent a hard traumatic BM restarting hemorrhoidal bleeding Problem List - Problems (1) Hematochezia Code(s): K92.1 - MELENA (2) Constipation Code(s): K59.00 - CONSTIPATION, UNSPECIFIED (3) Diverticulosis Code(s): K57.90 - DVRTCLOS OF INTEST, PART UNSP, W/O PERF OR ABSCESS W/O BLEED Qualifiers: Diverticulosis site: unspecified location
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
--- NOTE | 2018-11-24 13:28 | ECHO ---
Name: SOL PICHARDO Exam:Adult Echocardiogram Study Date: 11/24/2018 11:29 AM Age: 53 yrs Reason For Study: Tachycardia Height: 69 in Weight: 202 lb BSA: 2.1 m2 MMode/2D Measurements & Calculations IVSd: 1.1 cm ACS: 2.1 cm LVIDd: 3.9 cm LVIDs: 2.7 cm LVPWd: 1.3 cm EDV(Teich): 64.7 ml ESV(Teich): 26.6 ml Doppler Measurements & Calculations Med Peak E' Kraig: 14.1 cm/sec Lat Peak E' Kraig: 8.9 cm/sec Procedure A complete two-dimensional transthoracic echocardiogram was performed (2D, M-mode, Doppler and color flow Doppler). Moderately limited study. Left Ventricle The left ventricle is normal in size. Left ventricular systolic function is normal. Ejection Fraction = 55- 60%. No regional wall motion abnormalities noted. Right Ventricle The right ventricle is not well visualized. Atria The left atrial size is normal. Right atrial size is normal. Mitral Valve There is mild mitral annular calcification. There is mild mitral regurgitation. Tricuspid Valve The tricuspid valve is not well visualized. Aortic Valve The aortic valve is normal in structure and function. No aortic regurgitation is present. Pulmonic Valve The pulmonic valve is not well visualized. Great Vessels The aortic root is normal size. Pericardium/Pleura There is no pericardial effusion. Interpretation Summary Moderately limited study The left ventricle is normal in size. Left ventricular systolic function is normal. Ejection Fraction = 55-60%. The right ventricle is not well visualized. The left atrial size is normal. Right atrial size is normal. There is mild mitral annular calcification. There is mild mitral regurgitation. The tricuspid valve is not well visualized. There is no pericardial effusion. Previous study is not available for comparison Jevon Gracia MD 11/24/2018 01:28 PM
[2018-11-24] MEDS ORDERED: metoPROLOL SUCCINATE 25 MG TAB.SR.24H (FP) PO ONE (14:56)
[2018-11-24] MEDS ORDERED: ATORVASTATIN CA 20 MG TABLET (FP) PO SCH (22:00)
[2018-11-25 06:14] LABS: BASO % 0.8 % (0-2.0); EOS % 3.7 % (0-4.5); HEMATOCRIT 43.8 % (35.4-49); HEMOGLOBIN 14.4 GM/dL (11.7-16.9); LYMPH % 24.6 % (8-40); MCH 28.1 pg (25.7-33.7); MCHC 32.9 g/dl (32.0-35.9); MEAN CELL VOLUME 85.4 fl (80-96); MEAN PLT VOLUME 7.7 fl (7.5-11.1); MONO % 8.6 % (3.8-10.2); NEUT % 62.3 % (42.8-82.8); PLATELET COUNT 336 K/MM3 (134-434); RBC 5.13 M/mm3 (4.00-5.60); RDW 13.7 % (11.9-15.9); WHITE BLOOD COUNT 8.8 K/mm3 (4.0-10.0)
[2018-11-25 06:44] LABS: ALBUMIN 3.8 g/dl (3.4-5.0); ALK PHOS 51 U/L (45-117); ANION GAP 6 MMOL/L (8-16); BILIRUBIN,TOTAL 0.8 mg/dL (0.2-1); BLOOD UREA NITROGEN 18 mg/dL (7-18); CALCIUM 9.2 mg/dL (8.5-10.1); CHLORIDE 107 mmol/L (98-107); CO2 28 mmol/L (21-32); CREATININE 0.9 mg/dL (0.55-1.3); GLUCOSE,RANDOM 96 mg/dL (74-106); POTASSIUM 3.9 mmol/L (3.5-5.1); SGOT/AST 26 U/L (15-37); SGPT/ALT 47 U/L (13-61); SODIUM 141 mmol/L (136-145); TOT PROT 7.1 g/dl (6.4-8.2)
[2018-11-25] MEDS: POLYETHYLENE GLYCOL 3350 119 GM BTL PO SCH ×2 (06:57→14:33)
--- NOTE | 2018-11-25 07:11 | PN ---
Progress Note (short form) - Note Progress Note: Chief Complaint: Events noted, notes reviewed, denies any recurrent lower gastrointestinal bleed, denies any chest pain or dyspnea History of Present Illness: Seen and examined on telemetry. Events noted, notes reviewed, denies any recurrent lower gastrointestinal bleed, denies any chest pain or dyspnea Echocardiography revealed normal LV size and function with MAC and mild MR - Current Medication List Current Medications Acetaminophen (Tylenol -) 650 mg PO Q6H PRN PRN Reason: HEADACHE Atorvastatin Calcium (Lipitor -) 20 mg PO HS [facility] Last Admin: 11/24/18 21:36 Dose: 20 mg Lorazepam (Ativan -) 0.5 mg PO DAILY PRN PRN Reason: ANXIETY Last Admin: 11/24/18 10:08 Dose: 0.5 mg Metoprolol Succinate (Toprol Xl -) 25 mg PO DAILY [facility] Pantoprazole Sodium (Protonix -) 40 mg PO DAILY [facility] Last Admin: 11/24/18 09:57 Dose: 40 mg Polyethylene Glycol (Miralax (For Daily Use) -) 17 gm PO TID [facility] Last Admin: 11/25/18 06:57 Dose: 17 gm Review of Systems Constitutional: denies: Chills, Fever Cardiovascular: As Noted Above Respiratory: denies: Cough or Sputum Production Gastrointestinal: denies: Nausea, Vomiting, Constipation or Abdominal Pain Genitourinary: denies: Dysuria Musculoskeletal: No Symptoms Reported Neurological: denies: Dizziness, Headache - Objective Vital Signs: Last Vital Signs Temp Pulse Resp BP Pulse Ox 98.4 F 64 20 130/80 96 11/25/18 07:01 11/25/18 07:01 11/25/18 07:01 11/25/18 07:01 11/24/18 21:00 Intake & Output 11/22/18 11/23/18 11/24/18 11/25/18 23:59 23:59 23:59 23:59 Intake Total 1100 1250 2950 200 Balance 1100 1250 2950 200 Neck: Supple Negative JVD Cardiovascular: S1 S2 Regular Rate and Rhythm Respiratory: Clear to A&P Bilaterally Gastrointestinal: Soft Benign Normal Bowel Sounds Ext: Negative Edema Labs: CBC, BMP 11/25/18 06:00 11/25/18 06:00 Hepatic Panel Total Bilirubin 0.8 mg/dL (0.2-1) 11/25/18 06:00 AST 26 U/L (15-37) 11/25/18 06:00 ALT 47 U/L (13-61) 11/25/18 06:00 Alkaline Phosphatase 51 U/L (45-117) 11/25/18 06:00 Albumin 3.8 g/dl (3.4-5.0) 11/25/18 06:00 Assessment/Plan ASSESSMENT: 1. Asymptomatic sinus tachycardia in context of 2. Generalized anxiety disorder, PTSD/panic disorder 3. Hematochezia suspect resolved hemorrhoidal bleed, with history of diverticulosis 4. HTN 5. Hypercholesterolemia 6. Post-vasovagal syncope PLAN: 1. Continue Toprol XL and titrate dosage as tolerated and as needed 2. Continue Lipitor and titrate dosage as tolerated and as needed 3. Additional outpatient evaluation is recommended including MPI study for cardiovascular risk stratification, discussed in detail with the patient 4. Can be D/C from the cardiovascular point of view and F/U as outpatient Contreras Nieves M.D.
--- NOTE | 2018-11-25 08:24 | DS ---
Physical Examination Vital Signs: Vital Signs Temperature 98.4 F 11/25/18 07:01 Pulse Rate 64 11/25/18 07:01 Respiratory Rate 20 11/25/18 07:01 Blood Pressure 130/80 11/25/18 07:01 O2 Sat by Pulse Oximetry (%) 96 11/24/18 21:00 Constitutional: Yes: Well Nourished, No Distress, Calm Eyes: Yes: Conjunctiva Clear, EOM Intact, PERRL HENT: Yes: Atraumatic, Normocephalic Neck: Yes: Supple, Trachea Midline Cardiovascular: Yes: Regular Rate and Rhythm Respiratory: Yes: Regular, CTA Bilaterally Gastrointestinal: Yes: Normal Bowel Sounds, Soft ...Rectal Exam: Yes: Deferred Musculoskeletal: Yes: WNL Extremities: Yes: WNL Edema: No Peripheral Pulses WNL: Yes Peripheral Pulses: Left Radial: 2+, Right Radial: 2+, Left Doralis Pedis: 2+, Right Dorsalis Pedis: 2+ Integumentary: Yes: WNL Neurological: Yes: Alert, Oriented ...Motor Strength: WNL Psychiatric: Yes: Alert, Oriented Labs: CBC, BMP 11/25/18 06:00 11/25/18 06:00 Discharge Summary Reason For Visit: GASTROINTESTINAL HEMORRHAGE Current Active Problems Anxiety disorder due to medical condition (Acute) BRBPR (bright red blood per rectum) (Acute) Constipation (Acute) Diverticulosis (Acute) GI bleed (Acute) Hematochezia (Acute) Sinus tachycardia (Acute) Other Procedures: ECHO 11/24/18. Impression: moderately limited study. LV is normal size and LV systolic function is normal. EF 55-60%. RV not well visualized. Left atrial size is normal. Mild mitral annular calcification and mild mitral regurg. The TV is not well visualized. No pericardial effusion. Read by Jevon Gracia. CXR 11/24/18: no acute pathology. Read by Dr. Zain Hansen MD. EKG: ST 126bpm. Hospital Course: 53 y/o male presenting to [facility] ER complaining of bright red blood per rectum with bowel movement. Endorses four episodes prior to ED presentation, Colonoscopy was performed 09/04/2018 and revealed diverticulosis. Denies pain or straining with BM. Denies diarrhea or melena. Denies, syncope, lightheadedness, SOB, or chest pain. Denies fevers, chills, weight loss, night sweats, or change in stool caliber. Was evaluated at [facility] last night after first episode and referred to GI for outpatient follow up. He has had no further bleeding and H/H remained stable. Pt did have an incident of panic attack with tachycardia (HR 120-130s). Serial trops were negative and pt evaluated by cardiology with recommendation to start Toprol XL and uptitrate as needed, as well as continue lipitor Pt will follow up with cardiology as outpt and he will also find a PCP with whom he can closely follow. Condition: Good - Instructions Disposition: HOME - Home Medications Comprehensive Discharge Medication List: Ambulatory Orders NK [No Known Home Medication] 09/23/18 This patient is new to me today: Yes Date on this admission: 11/25/18 Emergency Visit: Yes ED Registration Date: 11/21/18 Care time: The patient presented to the Emergency Department on the above date and was hospitalized for further evaluation of their emergent condition. Critical Care patient: No - Discharge Referral Referred to [facility] No
[2018-11-25] MEDS ORDERED: metoPROLOL SUCCINATE 25 MG TAB.SR.24H (FP) PO SCH (10:00)
[2018-11-25] MEDS: PANTOPRAZOLE 40 MG TABLET (FP) PO SCH (10:02)
[2018-11-25 14:40] VITALS: BP 114/73; PULSE 69; TEMP 97.8
== END 2018-11-25 14:54 | disposition home or self-care (01) | DRG 394 ==
LOC: JER 09:15 → JERBED 12:01 → J4S 21:34
PROVIDERS: ADMIT Internal Medicine; ATTEND Nurse Practitioner Family
DX: K64.8 Other hemorrhoids (principal); K92.1 Melena; I10 Essential (primary) hypertension; K58.9 Irritable bowel syndrome, unspecified; K57.90 Diverticulosis of intestine, part unspecified, without perforation or abscess without bleeding; F41.9 Anxiety disorder, unspecified; K59.00 Constipation, unspecified; R55 Syncope and collapse; R00.0 Tachycardia, unspecified; F43.10 Post-traumatic stress disorder, unspecified; F41.1 Generalized anxiety disorder
CPT/HCPCS: 36415; 71045-TC-FY; 74174-TC; 80048; 80053; 80061; 82272; 82962; 83721; 83735; 84439; 84443; 84481; 84484; 85025; 85027; 85610; 85730; 86850; 86900; 86901; 93005; 93010; 93306-TC; 99283-25; J7030